=== PATIENT | male | born 2000 | race Hispanic/Latino ===

== ENCOUNTER 2018-06-18 02:26 | Emergency (ER) | payer SELFPAY ==
--- NOTE | 2018-06-18 04:07 | ER ---
Nurse's Notes [facility] Name: Endy Smith Age: 18 yrs Sex: Male : 2000 Arrival Date: 06/18/2018 Time: 02:27 Bed 15 Private MD: Diagnosis: Viral Infection Presentation: 06/18 02:34 Presenting complaint: Patient states: cough, headache, throat pain X3 days. pt stated ak1 he has been taking medication for "infection" that is mother gave him. Transition of care: patient was not received from another setting of care. Onset of symptoms is unknown. Care prior to arrival: None. 02:34 Method Of Arrival: Ambulatory ak1 02:34 Acuity: ERNESTINE 4 ak1 02:39 Risk Assessment: Do you want to hurt yourself or someone else? Patient reports no ak1 desire to harm self or others. Initial Sepsis Screen: Does the patient meet any 2 criteria? No. Patient's initial sepsis screen is negative. Does the patient have a suspected source of infection? No. Patient's initial sepsis screen is negative. 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 Gait is steady, Speech is normal. 02:38 Headache History: Other pt c/o headache to back of head. General: Appears in no ak1 apparent distress. Behavior is calm, cooperative. Pain: Pain currently is 7 out of 10 on a pain scale. Pain began 2-3 days ago. Historical: - Allergies: 02:36 No Known Allergies; ak1 - Home Meds: 02:36 None [Active]; ak1 - PMHx: 02:36 None; ak1 - PSHx: 02:36 None; ak1 - Immunization history:: Adult Immunizations up to date, Flu vaccine is not up to date. - Social history:: Smoking status: Patient/guardian denies using tobacco. - Ebola Screening: : No symptoms or risks identified at this time. Screenin:38 Abuse screen: Denies threats or abuse. Denies injuries from another. Nutritional ak1 screening: No deficits noted. Tuberculosis screening: No symptoms or risk factors identified. Fall Risk None identified. Assessment: 02:30 General: Appears in no apparent distress. comfortable, Behavior is calm, cooperative, jb4 appropriate for age, Pt reports having body aches and chills along with a headache . Pain: Complains of pain in gerneralized. Pain does not radiate. Pain currently is 2 out of 10 on a pain scale. Quality of pain is described as aching. Neuro: Level of Consciousness is awake, alert, obeys commands, Oriented to person, place, time, situation. Cardiovascular: Patient's skin is warm and dry. Respiratory: Airway is patent Respiratory effort is even, unlabored, Respiratory pattern is regular, symmetrical, Breath sounds are clear bilaterally. GI: No signs and/or symptoms were reported involving the gastrointestinal system. : EENT: Throat is reddened has enlarged tonsils bilaterally. Derm: Skin is intact, Skin is pink, warm \\T\\ dry. 03:45 Reassessment: Patient appears in no apparent distress at this time. Patient and/or jb4 family updated on plan of care and expected duration. Pain level reassessed. Patient is alert, oriented x 3, equal unlabored respirations, skin warm/dry/pink. 04:00 Reassessment: Patient appears in no apparent distress at this time. Patient and/or jb4 family updated on plan of care and expected duration. Pain level reassessed. Patient is alert, oriented x 3, equal unlabored respirations, skin warm/dry/pink. Vital Signs: 02:36 BP 118 / 70; Pulse 93; Resp 18; Temp 98.; Pulse Ox 98% on R/A; Weight 63.5 kg (R); ak1 Height 5 ft. 3 in. (160.02 cm) (R); Pain 8/10; 03:00 BP 115 / 77; Pulse 76; Resp 16; Pulse Ox 100% on R/A; jb4 04:00 BP 105 / 72; Pulse 70; Resp 16; Pulse Ox 98% on R/A; jb4 02:36 Body Mass Index 24.80 (63.50 kg, 160.02 cm) ak1 ED Course: 02:27 Patient arrived in ED. am2 02:33 Manoj Sommer, RN is Primary Nurse. jb4 02:36 Triage completed. ak1 02:36 Arm band placed on Patient placed in an exam room, on a stretcher, Patient notified of ak1 wait time. 02:39 Patient has correct armband on for positive identification. Placed in gown. Bed in low ak1 position. Call light in reach. Side rails up X 1. Adult w/ patient. Pulse ox on. NIBP on. 03:57 Art Marcelo MD is Attending Physician. pkl 04:15 No provider procedures requiring assistance completed. Patient did not have IV access jb4 during this emergency room visit. Administered Medications: No medications were administered Outcome: 04:06 Discharge ordered by . pkjahaira 04:15 Discharged to home ambulatory, with significant other. jb4 04:15 Condition: stable 04:15 Discharge instructions given to patient, significant other, Instructed on discharge instructions, follow up and referral plans. medication usage, Demonstrated understanding of instructions, follow-up care, medications, Prescriptions given X 1. 04:16 Patient left the ED. jb4 Signatures: Art Marcelo MD MD pkl Margi Mars, RN RN ak1 aMnoj Sommer RN RN jb4 Meghann Jain am2
--- NOTE | 2018-06-18 04:07 | EDPHYS ---
Physician Documentation [facility] Name: Endy Smith Age: 18 yrs Sex: Male : 2000 Arrival Date: 06/18/2018 Time: 02:27 Bed 15 Private MD: ED Physician Art Marcelo HPI: 06/18 04:03 This 18 yrs old Male presents to ER via Ambulatory with complaints of Cold pkl Symptoms, Dizziness, Headache. 04:03 The patient presents with sore throat. The patient describes throat pain as raw. Onset: pkl The symptoms/episode began/occurred 3 day(s) ago. Associated signs and symptoms: Pertinent positives: cough, headache, dizziness. Historical: - Allergies: 02:36 No Known Allergies; ak1 - Home Meds: 02:36 None [Active]; ak1 - PMHx: 02:36 None; ak1 - PSHx: 02:36 None; ak1 - Immunization history:: Adult Immunizations up to date, Flu vaccine is not up to date. - Social history:: Smoking status: Patient/guardian denies using tobacco. - Ebola Screening: : No symptoms or risks identified at this time. ROS: 04:03 Eyes: Negative for injury, pain, redness, and discharge. pkl 04:03 ENT: Positive for sore throat. 04:03 Neck: Negative for stiffness. 04:03 Cardiovascular: Negative for chest pain. 04:03 Respiratory: Positive for cough, with no reported sputum. 04:03 Abdomen/GI: Negative for abdominal pain, nausea, vomiting, and diarrhea. 04:03 Back: Negative for acute changes. 04:03 : Negative for urinary symptoms. 04:03 MS/extremity: Negative for acute changes. 04:03 Skin: Negative for rash. 04:03 Neuro: Negative for altered mental status. Exam: 04:03 Head/Face: Normocephalic, atraumatic. Eyes: Pupils equal round and reactive to light, pkl extra-ocular motions intact. Lids and lashes normal. Conjunctiva and sclera are non-icteric and not injected. Cornea within normal limits. Periorbital areas with no swelling, redness, or edema. ENT: Nares patent. No nasal discharge, no septal abnormalities noted. Tympanic membranes are normal and external auditory canals are clear. Oropharynx with no redness, swelling, or masses, exudates, or evidence of obstruction, uvula midline. Mucous membranes moist. Neck: Trachea midline, no thyromegaly or masses palpated, and no cervical lymphadenopathy. Supple, full range of motion without nuchal rigidity, or vertebral point tenderness. No Meningismus. Chest/axilla: Normal chest wall appearance and motion. Nontender with no deformity. No lesions are appreciated. Cardiovascular: Regular rate and rhythm with a normal S1 and S2. No gallops, murmurs, or rubs. Normal PMI, no JVD. No pulse deficits. Respiratory: Lungs have equal breath sounds bilaterally, clear to auscultation and percussion. No rales, rhonchi or wheezes noted. No increased work of breathing, no retractions or nasal flaring. Abdomen/GI: Soft, non-tender, with normal bowel sounds. No distension or tympany. No guarding or rebound. No evidence of tenderness throughout. Back: No spinal tenderness. No costovertebral tenderness. Full range of motion. Skin: Warm, dry with normal turgor. Normal color with no rashes, no lesions, and no evidence of cellulitis. MS/ Extremity: Pulses equal, no cyanosis. Neurovascular intact. Full, normal range of motion. Neuro: Awake and alert, GCS 15, oriented to person, place, time, and situation. Cranial nerves II-XII grossly intact. Motor strength 5/5 in all extremities. Sensory grossly intact. Cerebellar exam normal. Normal gait. Vital Signs: 02:36 BP 118 / 70; Pulse 93; Resp 18; Temp 98.; Pulse Ox 98% on R/A; Weight 63.5 kg (R); ak1 Height 5 ft. 3 in. (160.02 cm) (R); Pain 8/10; 03:00 BP 115 / 77; Pulse 76; Resp 16; Pulse Ox 100% on R/A; jb4 04:00 BP 105 / 72; Pulse 70; Resp 16; Pulse Ox 98% on R/A; jb4 02:36 Body Mass Index 24.80 (63.50 kg, 160.02 cm) ak1 MDM: 03:57 Patient medically screened. pk 04:03 Data reviewed: vital signs, nurses notes, lab test result(s). [facility] 06/18 02:38 Order name: Flu; Complete Time: 03:58 [facility] 06/18 02:38 Order name: Strep; Complete Time: 03:58 [facility] 06/18 03:25 Order name: Throat Culture EDMS Administered Medications: No medications were administered Disposition: 06/18/18 04:06 Discharged to Home. Impression: Viral Infection. - Condition is Stable. - Prescriptions for Acyclovir 400 mg Oral Tablet - take 1 tablet by ORAL route 3 times per day; 20 tablet. - Work release form, Medication Reconciliation Form, Thank You Letter, Antibiotic Education, Prescription Opioid Use form. - Follow up: Private Physician; When: 2 - 3 days; Reason: Re-evaluation by your physician. - Problem is new. - Symptoms have improved. Signatures: Dispatcher [employer] EDMS Art Marcelo MD MD pkl Margi Mars RN RN ak1 Manoj Sommer RN RN jb4 Corrections: (The following items were deleted from the chart) 04:16 04:06 06/18/2018 04:06 Discharged to Home. Impression: Viral Infection. Condition is jb4 Stable. Forms are Medication Reconciliation Form, Thank You Letter, Antibiotic Education, Prescription Opioid Use. Follow up: Private Physician; When: 2 - 3 days; Reason: Re-evaluation by your physician. Problem is new. Symptoms have improved. pkl
== END 2018-06-18 04:16 | disposition home or self-care (01) ==
LOC: ER 02:26
DX: B34.9 Viral infection, unspecified (principal); J02.9 Acute pharyngitis, unspecified
CPT/HCPCS: 87070; 87081; 87804; 99283